=== PATIENT | male | born 1965 | race African-American/Black ===

== ENCOUNTER 2021-05-29 10:50 | Emergency (ER) | payer SELFPAY ==
[2021-05-29 11:40] LABS: #Basophils 0.1 thou/uL (0.0-0.2); #Eosinphils 0.1 thou/uL (0.0-0.7); #Lymphocytes 4.4 thou/uL (1.20-3.40); #Monocytes 0.6 thou/uL (0.11-0.59); #Neutrophils 4.3 thou/uL (1.40-6.50); %Basophils 1.1 % (0.0-1.0); %Eosinophils 1.2 % (0.0-10.0); %Lymphocytes 46.5 % (21.0-51.0); %Monocytes 5.8 % (0.0-10.0); %Neutrophils 45.4 % (42.0-75.0); Hemoglobin 14.1 g/dL (14.0-18.0); Mean Corpuscular HGB CONC 32.9 g/dL (32.0-36.0); Mean Corpuscular Hemoglobin 31.7 pg (27.0-31.0); Mean Corpuscular Volume 96.3 fL (78.0-98.0); Mean Platelet Volume 7.4 fL (7.4-10.4); Platelet Count 285 thou/uL (130-400); RBC Distribution Width 11.4 % (11.5-14.5); Red Blood Cell (RBC) Count 4.43 mill/uL (4.70-6.10); White Blood Cell (WBC) Count 9.5 thou/uL (4.8-10.8)
[2021-05-29 12:20] LABS: ALT (SGPT) 16 U/L (8-55); AST (SGOT) 17 U/L (5-34); Albumin 4.1 g/dL (3.5-5.0); Alkaline Phosphatase 100 U/L (40-110); Anion Gap 12 mmol/L (10-20); BUN (Urea Nitrogen) 8 mg/dL (8.4-25.7); Bilirubin, Total 0.3 mg/dL (0.2-1.2); Calc. Creatinine Clearance 0 mL/min (70-130); Calcium 9.5 mg/dL (7.8-10.44); Carbon Dioxide 28 mmol/L (22-29); Chloride 105 mmol/L (98-107); Glucose 94 mg/dL (70-105); Potassium 4.7 mmol/L (3.5-5.1); Protein, Total 7.1 g/dL (6.0-8.3); Sodium 140 mmol/L (136-145)
[2021-05-29 12:23] LABS: Bilirubin Negative (Negative); Blood, Urine Negative (Negative); Clarity Clear (Clear); Glucose, Urine (Dipstick) Normal (Negative); Ketone, Urine Negative (Negative); Leukocyte Negative Leu/uL (Negative); Nitrite Negative (Negative); Protein, Urine (Dipstick) Negative (Neg-Trace); Urobilinogen Normal mg/dL (Less than 2)
[2021-05-29] MEDS ORDERED: Aspirin Chewable 81 MG TAB ONE (14:33)
== END 2021-05-29 15:36 | disposition home or self-care (01) ==
LOC: ERS 10:50
DX: R07.89 Other chest pain (principal); F17.210 Nicotine dependence, cigarettes, uncomplicated; Z79.82 Long term (current) use of aspirin
CPT/HCPCS: 36415; 71045; 80053; 81003; 84484; 85025; 93005

== ENCOUNTER 2022-04-06 14:28 | Outpatient (CLI) | payer MEDICARE, MEDICAID | END 2022-04-06 14:29 | disposition home or self-care (01) | LOC: BICMAMMO 14:28 | PROVIDERS: ATTEND Student in an Organized Health Care Education/Training Program | DX: N63.0 Unspecified lump in unspecified breast (principal); N62 Hypertrophy of breast | CPT/HCPCS: 76642; 77066; G0279 ==

== ENCOUNTER 2022-05-16 18:25 | Emergency (ER) | payer MEDICAID, MEDICARE, OTHER | END 2022-05-16 21:27 | disposition home or self-care (01) | LOC: ERS 18:25 | DX: S82.832A Other fracture of upper and lower end of left fibula, initial encounter for closed fracture (principal); X58.XXXA Exposure to other specified factors, initial encounter | CPT/HCPCS: 29515 ==

== ENCOUNTER 2022-10-09 08:41 | Outpatient (CLI) | payer MEDICAID, OTHER | END 2022-10-09 08:42 | disposition home or self-care (01) | LOC: BICMAMMO 08:41 | PROVIDERS: ATTEND Student in an Organized Health Care Education/Training Program | DX: N63.0 Unspecified lump in unspecified breast (principal); R92.8 Other abnormal and inconclusive findings on diagnostic imaging of breast; N60.21 Fibroadenosis of right breast | CPT/HCPCS: G0279 ==

== ENCOUNTER 2023-07-12 13:15 | Outpatient (CLI) | payer OTHER | END 2023-07-12 13:16 | disposition home or self-care (01) | LOC: BICCT 13:15 | PROVIDERS: ATTEND Student in an Organized Health Care Education/Training Program | DX: Z12.2 Encounter for screening for malignant neoplasm of respiratory organs (principal); Z72.0 Tobacco use | CPT/HCPCS: 71271 ==

== ENCOUNTER 2024-03-18 10:50 | Emergency (ER) | payer OTHER ==
[2024-03-18] MEDS ORDERED: Acetaminophen 500 MG TAB ONE (12:19)
[2024-03-18 13:39] LABS: Influenza A by NAA Not Detected (NotDetected); Influenza B by NAA Not Detected (NotDetected); SARS-CoV-2 NAA Rapid Test DETECTED (NotDetected)
== END 2024-03-18 14:07 | disposition home or self-care (01) ==
LOC: ERS 10:50
DX: U07.1 COVID-19 (principal); Z87.891 Personal history of nicotine dependence
CPT/HCPCS: 71045

== ENCOUNTER 2024-07-30 08:27 | Outpatient (CLI) | payer OTHER | END 2024-07-30 08:28 | disposition home or self-care (01) | LOC: BICCT 08:27 | DX: Z12.2 Encounter for screening for malignant neoplasm of respiratory organs (principal); F17.211 Nicotine dependence, cigarettes, in remission | CPT/HCPCS: 71271 ==